=== PATIENT | male | born 1975 | race Two or more races ===

== ENCOUNTER 2024-09-11 08:15 | Outpatient (CLI) | payer OTHER | END 2024-09-11 08:25 | disposition home or self-care (01) | LOC: RAD 08:15 | PROVIDERS: ATTEND Orthopaedic Surgery | DX: S62.304A Unspecified fracture of fourth metacarpal bone, right hand, initial encounter for closed fracture (principal); S63.642A Sprain of metacarpophalangeal joint of left thumb, initial encounter; X58.XXXA Exposure to other specified factors, initial encounter; Y93.9 Activity, unspecified; Y92.9 Unspecified place or not applicable; Y99.9 Unspecified external cause status ==

== ENCOUNTER 2024-10-07 11:24 | Outpatient (CLI) | payer OTHER | END 2024-10-07 11:29 | disposition home or self-care (01) | LOC: RAD 11:24 | PROVIDERS: ATTEND Orthopaedic Surgery | DX: S62.340A Nondisplaced fracture of base of second metacarpal bone, right hand, initial encounter for closed fracture (principal) ==